=== PATIENT | female | born 1950 | race Caucasian/White ===

== ENCOUNTER 2016-11-05 17:12 | Emergency (ER) | payer OTHER, MEDICARE ==
[~2016-11-05] VITALS: Ht 170.2 cm; Wt 77.0 kg
[~2016-11-05 17:12] MED LIST: FOSA70TA OR; METO25 PO; OMEP20TA OR; SIMV40TA OR; VERA240T18 OR; ZOMI5TAB5 PO
[2016-11-05 17:26] VITALS: BP 169/81; PULSE 72; RESP 18; TEMP 98.4; O2SAT 96
[2016-11-05] MEDS ORDERED: VERA40TA PO (17:32)
[2016-11-05] MEDS ORDERED: SODIUM CHLORIDE 0.9% FLUSH 5 ML FLUSH IVF PRN (17:45)
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
[2016-11-05 18:24] VITALS: O2SAT 100
[2016-11-05 18:37] LABS: APTT (PATIENT) 25.9 SEC (24.3-30.1)
[2016-11-05 18:52] LABS: BICARBONATE 26.2 MEQ/L (21.0-32.0); POTASSIUM 3.7 MEQ/L (3.5-5.1)
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
[2016-11-05 19:35] LABS: AUTOMATED NEUTROPHIL # 5.6 TH/MM3 (1.8-7.7); BASOPHIL % 0.4 % (0.0-2.0); EOSINOPHIL # 0.1 TH/MM3 (0-0.4); EOSINOPHIL % 0.6 % (0.0-4.0); HEMATOCRIT 39.9 % (35.0-46.0); HEMO FLAGS DIFF FINAL; LYMPH % 23.1 % (9.0-44.0); LYMPHOCYTE # 1.9 TH/MM3 (1.0-4.8); MEAN CELL VOLUME 84.1 FL (80.0-100.0); MEAN CORPUSCULAR HEMOGLOBIN 29.2 PG (27.0-34.0); MEAN CORPUSCULAR HGB CONC 34.7 % (32.0-36.0); MONO % 6.4 % (0.0-8.0); NEUT % 69.5 % (16.0-70.0); PLATELET COUNT 222 TH/MM3 (150-450); RED BLOOD COUNT 4.74 MIL/MM3 (4.00-5.30); RED CELL DISTRIBUTION WIDTH 13.1 % (11.6-17.2); WHITE BLOOD COUNT 8.1 TH/MM3 (4.0-11.0)
[2016-11-05] MEDS ORDERED: IOHEXOL 350 MG/ML 10 ML VIAL (for RAD DIAG) IV ONE (19:39)
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
[2016-11-05] MEDS ORDERED: NORC5TAB PO (20:49)
[2016-11-05] MEDS ORDERED: NAPR500 PO (20:49)
[2016-11-05] MEDS ORDERED: IBUPROFEN 800 MG TAB PO ONE (21:00)
[2016-11-05] MEDS ORDERED: ACETAMINOPHEN/HYDROcodone 325 MG/5 MG TAB PO ONE (21:00)
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
== END 2016-11-05 21:15 | disposition home or self-care (01) ==
LOC: NEDAMB 17:12
DX: S22.43XA Multiple fractures of ribs, bilateral, initial encounter for closed fracture (principal); I10 Essential (primary) hypertension; V43.62XA Car passenger injured in collision with other type car in traffic accident, initial encounter; Y99.8 Other external cause status
CPT/HCPCS: 70450; 70486; 71010; 71260; 72125; 72170; 74177; 80048; 85025; 85610; 85730; 94150; 99284; Q9967